=== PATIENT | male | born 1985 | race Caucasian/White ===

== ENCOUNTER → 2021-02-12 10:24 | Outpatient (CLI) | payer OTHER, SELFPAY ==
[2021-02-12 12:20] LABS: Vitamin D,25 Hydroxy 30.2 ng/mL
[2021-02-12 12:29] LABS: Anion Gap 4 (5-15); BUN 19 mg/dL (7-18); BUN/Creat Ratio 19.5 RATIO (10-20); Calcium,Total 9.7 mg/dL (8.5-10.1); Chloride 104 mmol/L (98-107); Cholesterol 383 mg/dL (200); Creatinine, Serum 0.98 mg/dL (0.70-1.30); EST Glomerular Filtration Rate 94 mL/min (>60); Est Glom Filt Rate - Afr Amer 113 mL/min (>60); Glucose 90 mg/dL (74-106); High Density Lipoprotein 52 mg/dL; Sodium Level 136 mmol/L (136-145); Thyroid Stim Hormone (TSH) 2.17 uIU/mL (0.358-3.74); Triglycerides 90 mg/dL; Very Low Density Lipoprotein 18 mg/dL (5-40)
== END ==
PROVIDERS: PCP Family Medicine; Referring Provider Family Medicine; Visit Provider Family Medicine
DX: Z00.00 Encounter for general adult medical examination without abnormal findings (principal)
CPT/HCPCS: 36415; 80048; 80061; 82306; 84403; 84443

== ENCOUNTER 2021-03-16 16:30 | Outpatient (RCR) | payer OTHER, SELFPAY | END 2021-04-01 23:59 | LOC: NS 16:30 | PROVIDERS: PCP Family Medicine; Visit Provider Family Medicine | DX: Z71.3 Dietary counseling and surveillance (principal); E66.3 Overweight | CPT/HCPCS: 97802 ==